=== PATIENT | female | born 1955 | race Caucasian/White ===

== ENCOUNTER → 2020-03-07 | Outpatient (CLI) | payer BC ==
--- NOTE | 2020-03-07 16:38 | KCIC ---
Bilateral digital screening mammograms with 3-D tomosynthesis: Reason for examination: Routine screening. Comparison is made to previous studies dated between 09/19/2015 and 08/02/2011. Bilateral mammograms in CC and oblique projections were obtained with 2-D imaging and 3-D tomosynthesis imaging on a Siemens Inspiration unit and reviewed on the workstation. Interpretation was made with the benefit of CAD. The skin and nipples show no abnormalities. No abnormal axillary lymph nodes are seen. The breast parenchyma shows scattered fatty and fibroglandular density. (Breast density: Category B.) There appears to be a small nodular density at approximately the 6:00 position of the left breast anteriorly measuring 8 mm in size. There also appear to be small nodules in the right breast posterior medially at the 3:00 C position measuring approximately 1.2 cm in greatest dimension, on oblique projection of the right breast anteriorly at approximately the 12:00 position 2.5 cm from the nipple measuring 9 mm in size and in the retroareolar 6:00 position 7 cm from the nipple measuring 6 mm in size. Further evaluation of these areas with ultrasound is recommended. There are no suspicious calcifications seen. Impression: Nodular densities bilaterally as described above. Recommend further evaluation with ultrasound. BI-RADS Category 0: Incomplete. Needs additional imaging evaluation. "Our facility is accredited by the [employer] Mammography [employer]." This patient's information has been entered into a reminder system for the patient to be notified with the results of her examination and a target date for the next mammogram. Electronically signed by: Cinthia Rodriguez MD (03/07/2020 4:35 PM) [email or web address]
== END ==
LOC: KCIC MAMMO 15:32
PROVIDERS: ATTEND Family Medicine
DX: Z12.31 Encounter for screening mammogram for malignant neoplasm of breast (principal); N64.89 Other specified disorders of breast
CPT/HCPCS: 77063; 77067

== ENCOUNTER → 2020-04-03 | Outpatient (CLI) | payer BC ==
--- NOTE | 2020-04-03 14:24 | KCIC ---
Bilateral breast ultrasound: Reason for examination: Nodular densities on screening mammogram. Comparison is made to mammographic exam dated 03/07/2020. Ultrasound examination was performed bilaterally of the breasts and axilla. In the right breast, there is a small 3.6 mm hypoechoic fibrocystic lesion at the 12:00 position 2.5 cm from the nipple. There is also a cluster of atelectatic ducts at the 12:00 retroareolar position which may correspond to the area of mammographic concern. At the 3:00 position 5 cm from the nipple, there is a 2.1 mm hypoechoic fibrocystic type lesion. At the 2:00 position 14 cm from the nipple, there is a 1.1 cm hypoechoic circumscribed lesion in parallel orientation with septation which probably represents a small fibroadenoma. No abnormal appearing lymph nodes are seen in the right axilla. In the left breast at the 6:00 position 3 cm from the nipple, there is focal cystic ductal ectasia measuring 6.7 mm in greatest dimension. No other cystic or solid lesions are seen. No abnormal appearing lymph nodes are seen in the left axilla. IMPRESSION: Focal cystic ductal ectasia at the 6:00 position of the left breast. 1.1 cm hypoechoic circumscribed nodule consistent with a fibroadenoma at the 2:00 position 14 cm from the nipple. Fibrocystic type lesions at the 12:00 and 3:00 positions of the right breast with benign appearances. Recommend 6 month follow-up ultrasound examination of the right breast. BI-RADS Category 3: Probably Benign. "Our facility is accredited by the [employer]ammography [employer]." This patient's information has been entered into a reminder system for the patient to be notified with the results of her examination and a target date for the next mammogram. Electronically signed by: Cinthia Rodriguez MD (04/03/2020 2:22 PM) [email or web address]
== END ==
LOC: KCIC US 12:46
PROVIDERS: ATTEND Family Medicine
DX: N60.01 Solitary cyst of right breast (principal); N60.02 Solitary cyst of left breast
CPT/HCPCS: 76641

== ENCOUNTER → 2020-09-30 | Outpatient (CLI) | payer BC ==
--- NOTE | 2020-09-30 13:14 | KCIC ---
Right breast ultrasound: Reason for examination: Follow-up nodules. Comparison is made to previous study dated 04/03/2020. Ultrasound examination of the right breast and axilla was performed. At the 12:00 position 2.5 cm from the nipple, there continues to be a small 3.5 x 2.4 mm hypoechoic f ibrocystic lesion which has decreased in size. At the 2:00 position 14 cm from the nipple there is so me minimal hypoechoic fibrocystic type change which has decreased when compared to previous exam now measuring 5.2 mm in greatest dimension the small hypoechoic lesion in the 3:00 position is no longer identified. No abnormal appearing lymph nodes are seen in the right axilla. IMPRESSION: Small fibrocystic type lesions at the 12:00 and 2:00 positions which have improved when compared to p revious exam. No suspicious abnormalities are seen. Recommend routine mammographic follow-up. BI-RADS Category 2: Benign. "Our facility is accredited by the [employer] Mammography [employer]." This patient's information has been entered into a reminder system for the patient to be notified wit h the results of her examination and a target date for the next mammogram. Electronically signed by: Cinthia Rodriguez MD (09/30/2020 1:12 PM) [email or web address]
== END ==
LOC: KCIC US 10:37
PROVIDERS: ATTEND Family Medicine
DX: N60.01 Solitary cyst of right breast (principal)
CPT/HCPCS: 76641

== ENCOUNTER → 2021-07-30 | Outpatient (CLI) | payer BC, MEDICARE, OTHER ==
--- NOTE | 2021-07-30 12:05 | KCIC ---
INDICATION: Screening for osteopenia/osteoporosis. Reason: POST MENOPAUSAL, VIT D DEFICIENCY / Spl. Instructions: / History: COMPARISON: None. TECHNIQUE: Bone densitometry was performed through the lumbar spine and proximal femur. IMPRESSION: Lumbar Spine: BMD: 0.83 T-Score: -2.0 Range: Osteopenic Proximal Femur: BMD: 0.67 T-Score: -2.3 Range: Osteopenic World Health Organization Criteria for Bone Density: T-Score: > -1.0: Normal Range < -1.0 to -2.5: Osteopenic Range < -2.5: Osteoporotic Range Electronically signed by: Jeff Vicente MD (07/30/2021 12:03 PM) [email or web address]
--- NOTE | 2021-07-31 08:54 | KCIC ---
Bilateral digital screening 2-D and 3-D (digital breast tomosynthesis) mammogram: Reason for examination: Routine screening. 01/15/2013, 09/19/2015, and the 03/07/2020. Comparison: Mammograms from Interpretation was made with the benefit of CAD. FINDINGS: Breast density: Category B. There are scattered areas of fibroglandular density. No new suspicious breast mass, malignant appearing calcifications, or architectural distortion is see n. There are small nodular asymmetries in both breasts which are stable. IMPRESSION: No evidence of malignancy. Assessment: BI-RADS 2. Benign findings. Recommendation: Routine screening mammograms. The patient will receive a letter with the results in the mail. Patient information will be entered i nto the mammography reminder system with a target recall date for the next mammogram. A reminder april er will be generated. Electronically signed by: Rashida Jenkins MD (07/31/2021 8:52 AM) [email or web address]
== END ==
LOC: KCIC MAMMO 10:15
PROVIDERS: ATTEND Family Medicine
DX: Z12.31 Encounter for screening mammogram for malignant neoplasm of breast (principal); M85.89 Other specified disorders of bone density and structure, multiple sites; E55.9 Vitamin D deficiency, unspecified; Z78.0 Asymptomatic menopausal state
CPT/HCPCS: 77063; 77067; 77080